=== PATIENT | female | born 1940 | race Two or more races ===

== ENCOUNTER 2020-12-07 14:00 | Outpatient (CLI) | payer OTHER | END 2020-12-07 14:11 | disposition home or self-care (01) | LOC: LAB 14:00 | PROVIDERS: ATTEND Radiology Diagnostic Radiology | DX: N20.0 Calculus of kidney (principal) ==

== ENCOUNTER 2020-12-10 08:19 | Outpatient (CLI) | payer OTHER | END 2020-12-10 08:37 | disposition home or self-care (01) | LOC: TOM 08:19 | PROVIDERS: ATTEND Internal Medicine | DX: K57.90 Diverticulosis of intestine, part unspecified, without perforation or abscess without bleeding (principal); R10.84 Generalized abdominal pain; R19.5 Other fecal abnormalities | CPT/HCPCS: 74177; Q9965 ==

== ENCOUNTER 2024-11-28 11:39 | Outpatient (CLI) | payer OTHER | END 2024-11-28 11:55 | disposition home or self-care (01) | LOC: MAMO-SONO 11:39 | PROVIDERS: ATTEND Surgery | DX: N60.11 Diffuse cystic mastopathy of right breast (principal); D24.1 Benign neoplasm of right breast ==